=== PATIENT | male | born 1975 | race Caucasian/White ===

== ENCOUNTER 2023-05-23 11:44 | Emergency (ER) | payer BC, SELFPAY ==
[2023-05-23] VITALS (11 sets, daily range): BP systolic 77–143; BP diastolic 43–84; PULSE 60–70; RESP 15–21; TEMP 36.9; O2SAT 92–96; BMI 42.5
--- NOTE | 2023-05-23 11:42 | ECG_ITS ---
APPROVED REPORT Exam: Resting ECG HR:64 bpm ECG Measurements Heart Rate 64 AXES AK 185 P 50 QRSd 97 QRS 99 QT 417 T 14 QTc 427 Conclusion SINUS RHYTHM BORDERLINE RIGHT AXIS DEVIATION [QRS AXIS > 90] NONSPECIFIC T-WAVE ABNORMALITY BORDERLINE ECG UNCONFIRMED REPORT Electronically signed by : RICKY ROLLE, 05/24/2023 06:30:26
--- NOTE | 2023-05-23 11:47 | [facility].EDGENADL ---
Discharge Plan Disposition Patient Disposition: Home, Self-Care Condition: Good Referrals Follow up/Referrals: Provider,Referral, MD [Primary Care Provider] - See instructions Activity Restrictions/Add. Instructions Additional Instructions/Restrictions: Please continue to stay hydrated and eat throughout the day. Please return if you develop any new or worsening symptoms. Clinical Impressions Clinical Impression: Syncope and collapse, Influenza Instructions Patient Instructions: DI for Syncope in Adults (Fainting), DI for Syncope in Children (Fainting) Discharge ED Provider: Kory Bar Adult HPI General Chief complaint: Syncope Stated complaint: syncope Time Seen by Provider: 05/23/23 11:47 History of Present Illness HPI narrative: Patient reports 2 episodes of syncope which occurred shortly prior to arrival. He states he had been experiencing flulike symptoms which included congestion, rhinorrhea, myalgias, for approximately 3 to 4 days prior to onset of symptoms, he was sitting at the table to have breakfast, had not eaten yet, and felt weak and as though he was going to pass out. He subsequently lost consciousness for a short period of time, less than 1 minute, with rapid return to baseline. He attempted to ambulate to the bedroom and had similar episode at that time as well. No previous therapies. Patient denies any chronic medical issues, although does take several [id number] supplements, and, upon further inquiry, testosterone through clinic. He denies any leg pain or leg swelling. He denies any chest pain or shortness of breath or hemoptysis, he denied any palpitations during that time. Fingerstick blood sugar prior to arrival was with in normal limits. He denies any headache or diplopia or vision changes or numbness or tingling. No changes in medications or new medications. He does report that he has experienced decreased p.o. intake for the past several days, liquids as well as solids. Please note that above description of symptoms, in this electronic medical record under categorization of recalled from ER triage doctor by RN are reflective of an initial nursing assessment, however, is not reflective of my full history and physical exam that was personally taken and clarified. Consequentially, this preceding description of symptoms, which may include the patient's categorized chief complaint in the EMR, do not reflect my personal clinical impression, and the ultimate description of history of present illness and patient stated complaints should be deferred to this section of the note. Unless stated otherwise or congruent with this section of the note, additional signs, symptoms, or incongruence should be interpreted as inaccurate with my clinical impression. Related Data Allergies Allergy/AdvReac Type Severity Reaction Status Date / Time No Known Allergies Allergy Verified 05/23/23 12:35 [facility] Disclaimer: The information contained in this section may have been updated after the patient was seen, as this information can be updated by other users. Social History Smoking Status: Never smoker alcohol intake: former current occupational status: other Travel in the last 8 weeks: None ROS Obtained: Yes Systems reviewed as appropriate & no additional complaints except as documented As per HPI Physical Exam General General appearance: alert and in no apparent distress Head Head exam: atraumatic and normocephalic Eye Eye exam: Present normal appearance Neck Neck exam: Present normal inspection Chest Chest inspection: Present normal inspection and symmetric chest wall rise Respiratory Respiratory exam: Present normal lung sounds bilaterally; Absent respiratory distress Cardiovascular Cardiovascular exam: Present regular rate and normal rhythm Abdominal Exam Abdominal exam: Present soft Neurological Exam Neurological exam: Present alert and oriented X3 Psychiatric Psychiatric exam: Present normal affect and normal mood Skin Skin exam: Present warm and dry Other Other exam information: Dry mucous membranes, no chest wall tenderness to palpation, pulses strong and symmetric in bilateral upper extremities Medical Decision Making Medical Records Medical records reviewed: Yes I reviewed the patient's medical records. Rodrigo Inquiry Pt receiving controlled substance: No Vital Signs: 05/23/23 11:45 05/23/23 12:00 05/23/23 12:31 Temperature 98.4 F Temperature Source Oral Pulse Rate 65 Pulse Rate [Left Radial] 70 Respiratory Rate 15 19 18 Blood Pressure 122/72 109/57 L Blood Pressure [Right Arm] 125/72 Blood Pressure Mean Blood Pressure Mean [Right Arm] 89 02 Sat by Pulse Oximetry 94 L 94 L Oxygen Delivery Method Room Air 05/23/23 13:01 05/23/23 13:31 05/23/23 13:36 Temperature Temperature Source Pulse Rate 65 60 60 Pulse Rate [Left Radial] Respiratory Rate 18 21 21 Blood Pressure 77/43 L 101/61 L 109/73 L Blood Pressure [Right Arm] Blood Pressure Mean 54 Blood Pressure Mean [Right Arm] 02 Sat by Pulse Oximetry 92 L 93 L 92 L Oxygen Delivery Method 05/23/23 14:00 05/23/23 14:31 05/23/23 15:00 Temperature Temperature Source Pulse Rate 62 65 64 Pulse Rate [Left Radial] Respiratory Rate 15 16 15 Blood Pressure 117/71 122/74 143/84 H Blood Pressure [Right Arm] Blood Pressure Mean 89 Blood Pressure Mean [Right Arm] 02 Sat by Pulse Oximetry 94 L 96 93 L Oxygen Delivery Method Room Air 05/23/23 15:31 05/23/23 15:56 Temperature 98.4 F Temperature Source Pulse Rate 66 66 Pulse Rate [Left Radial] Respiratory Rate 18 18 Blood Pressure 129/76 129/76 Blood Pressure [Right Arm] Blood Pressure Mean 85 Blood Pressure Mean [Right Arm] 02 Sat by Pulse Oximetry 95 Oxygen Delivery Method Room Air Lab Data Lab Results 05/23/23 11:46: WBC 3.2 L, RBC 5.90, Hgb 17.3, Hct 53.9 H, MCV 91.4, MCH 29.3, MCHC 32.0, RDW 14.2, Plt Count 127 L, MPV 8.1, Neut % (Auto) 53.8, Lymph % (Auto) 29.7, [place] % (Auto) 12.1 H, Eos % (Auto) 1.3, Baso % (Auto) 3.1 H, Neut # (Auto) 1.7 L, Lymph # (Auto) 1.0, [place] # (Auto) 0.4, Eos # (Auto) 0.0, Baso # (Auto) 0.1, PT 11.9, INR 1.11 H, D-Dimer 0.53 H, Sodium 137, Potassium 4.3, Chloride 103, Carbon Dioxide 29, Anion Gap 9.3, BUN 16, Creatinine 1.20, Estimated Creat Clear 88, Estimated GFR 64, Est GFR ( Amer) 78, Glucose 122 H, Calcium 8.2 L, Magnesium 1.8, Total Bilirubin 0.8, AST 73 H, ALT 63, Alkaline Phosphatase 37 L, Troponin I 0.03, Total Protein 6.5, Albumin 3.8, Globulin 2.7, Albumin/Globulin Ratio 1.4, TSH 9.78 H, Free T4 0.85, SARS-CoV-2 (PCR) Not detected, Influenza A Untype (PCR) Detected A, Influenza Type B (PCR) Not detected 05/23/23 14:28: Troponin I 0.02 05/23/23 11:46 05/23/23 11:46 Orders (Tests/Meds): ORDERS Category Date Time Status XR chest portable Stat Exams 05/23/23 12:21 Completed CBC w/Auto Diff [Complete Blood Count Auto Diff] Stat Lab 05/23/23 11:46 Completed CMP [Comprehensive Metabolic Panel] Stat Lab 05/23/23 11:46 Completed D-Dimer Stat Lab 05/23/23 11:46 Completed Free T4 (Free Thyroxine) Stat Lab 05/23/23 11:46 Completed MAG [Magnesium] Stat Lab 05/23/23 11:46 Completed PT INR [Prothrombin Time INR] Stat Lab 05/23/23 11:46 Completed Rapid PCR Covid and Flu A/B Stat Lab 05/23/23 11:46 Completed TSH [Thyroid Stimulating Hormone] Stat Lab 05/23/23 11:46 Completed Troponin I Q2H Lab 05/23/23 11:46 Completed Troponin I Q2H Lab 05/23/23 14:28 Completed Medical Decision Narrative: Patient with history and exam per above presenting for evaluation of syncope Diagnoses considered include conduction abnormality, ACS, PE, hypoglycemia, anemia, vasovagal precipitant, there is minimal evidence to suggest at this time dissection, ruptured AAA, ICH, seizure, or other acute surgical pathology ED workup and treatment included: ORDERS Category Date Time Status XR chest portable Stat Exams 05/23/23 12:21 Completed CBC w/Auto Diff [Complete Blood Count Auto Diff] Stat Lab 05/23/23 11:46 Completed CMP [Comprehensive Metabolic Panel] Stat Lab 05/23/23 11:46 Completed D-Dimer Stat Lab 05/23/23 11:46 Completed Free T4 (Free Thyroxine) Stat Lab 05/23/23 11:46 Completed MAG [Magnesium] Stat Lab 05/23/23 11:46 Completed PT INR [Prothrombin Time INR] Stat Lab 05/23/23 11:46 Completed Rapid PCR Covid and Flu A/B Stat Lab 05/23/23 11:46 Completed TSH [Thyroid Stimulating Hormone] Stat Lab 05/23/23 11:46 Completed Troponin I Q2H Lab 05/23/23 11:46 Completed Troponin I Q2H Lab 05/23/23 14:28 Completed Labs were independently interpreted by me, significant for troponins within normal limits x 2, D-dimer 0.53, applying years criteria, does not warrant further imaging. No acute anemia, influenza positive Imaging was independently visualized and interpreted by me, significant for no acute findings. Please refer to radiology report for full details. My clinical impression at this time is most consistent with reflex syncope. Patient upon repeat evaluation is able to tolerate p.o. intake, ambulate, reports improvement of symptoms. I discussed my clinical impression with patient and answered all questions. At this time, the evidence for any other entities in the differential is insufficient to warrant any further testing or ED observation. This was explained to the patient. The patient was advised that persistent or worsening symptoms require further evaluation. I confirmed the patient's understanding of this discussion. Critical Care Critical Care Time Critical Care Time: No
--- NOTE | 2023-05-23 12:21 | XR_ITS ---
PROCEDURE INFORMATION: Exam: XR Chest Exam date and time: 05/23/2023 12:25 PM Age: 48 years old Clinical indication: Other: Syncope TECHNIQUE: Imaging protocol: Radiologic exam of the chest. Views: 1 view. COMPARISON: No relevant prior studies available. FINDINGS: Lungs: Unremarkable. No consolidation. Pleural spaces: Unremarkable. No pleural effusion. No pneumothorax. Heart/Mediastinum: Unremarkable. No cardiomegaly. Bones/joints: Unremarkable. IMPRESSION: No acute findings.
[2023-05-23 12:31] LABS: Coronavirus 19, PCR Not Detected (NotDetected); Influenza B, PCR Not Detected (NotDetected)
[2023-05-23 12:34] LABS: Basophils # 0.1 K/mm3 (0-0.2); Basophils % 3.1 % (0.1-2.0); Chloride 103 mmol/L (98-107); Eosinophils % 1.3 % (0.1-12.0); Hematocrit 53.9 % (42.0-52.0); Hemoglobin 17.3 g/dL (14.1-18.0); Lymphocytes % 29.7 % (10-50); Mean Corpuscular Hemoglobin 29.3 pg (27.0-31.2); Mean Corpuscular Volume 91.4 fl (80-94); Mean Platelet Volume 8.1 fl (7.4-10.4); Monocytes # 0.4 K/mm3 (0.1-1.0); Monocytes % 12.1 % (1.7-9.3); Neutrophils # 1.7 K/mm3 (1.8-7.8); Neutrophils % 53.8 % (37.0-80.0); Platelet Count 127 K/mm3 (142-424); Potassium 4.3 mmoL/L (3.5-5.1); Red Cell Distribution Width 14.2 % (11.5-17.5); Sodium 137 mmol/L (136-145); White Blood Count 3.2 K/mm3 (4.8-10.8)
[2023-05-23 12:36] LABS: Blood Urea Nitrogen 16 mg/dl (9-20)
[2023-05-23 12:37] LABS: Alanine Aminotransferase 63 U/L (12-78); Albumin Level 3.8 g/dl (3.5-5.0); Albumin/Globulin Ratio 1.4 (1.1-1.8); Alkaline Phosphatase 37 U/L (38-126); Anion Gap 9.3 mEq/L (5-15); Aspartate Amino Transferase 73 U/L (17-59); Bilirubin,Total 0.8 mg/dl (0.2-1.3); Calcium 8.2 mg/dl (8.4-10.2); Carbon Dioxide 29 mmol/L (22.0-30.0); Creatinine Clearance Estimated 88 mL/min (50-200); Estimated Glomerular Filt Rate 64 ml/min (>60); GFR (African American) 78 ML/MIN (>60); Globulin 2.7 g/dL (1.3-3.2); Glucose 122 mg/dl (74-100); Magnesium 1.8 mg/dl (1.6-2.3); Total Protein,Serum 6.5 g/dl (6.3-8.2)
--- NOTE | 2023-05-23 12:37 | PC.NURSE ---
Rounded on patient, helped patient with needs voiced at this time.
[2023-05-23 12:39] LABS: INR 1.11 (0.9-1.1); Prothrombin Time 11.9 seconds (10.1-12.5)
[2023-05-23 12:50] LABS: Troponin I 0.03 ng/ml (0.00-0.034)
[2023-05-23 12:55] LABS: Free T4 (Free Thyroxine) 0.85 ng/dl (0.78-2.19)
[2023-05-23 12:59] LABS: D-Dimer 0.53 ug/mL (0.0-0.5)
[2023-05-23 13:08] LABS: Thyroid Stimulating Hormone 9.78 uIU/mL (0.465-4.68)
[2023-05-23 13:12] LABS: Influenza A, PCR Detected (NotDetected)
--- NOTE | 2023-05-23 13:28 | PC.NURSE ---
called radiology who reports that scans are assigned
--- NOTE | 2023-05-23 13:37 | PC.NURSE ---
rounded on patient, patient provided crackers and ice chips at this time.
[2023-05-23 14:59] LABS: Troponin I 0.02 ng/ml (0.00-0.034)
== END 2023-05-23 15:56 | disposition home or self-care (01) ==
PROVIDERS: Emergency Provider Emergency Medicine
DX: J10.1 Influenza due to other identified influenza virus with other respiratory manifestations (principal); R55 Syncope and collapse; R09.81 Nasal congestion; M79.18 Myalgia, other site
CPT/HCPCS: 36415; 71045; 80053; 83735; 84439; 84443; 84484; 85025; 85378; 85610; 87636; 93005; 99284